=== PATIENT | female | born 1980 | race Caucasian/White ===

== ENCOUNTER 2023-05-12 05:33 | Outpatient (CLI) | payer OTHER ==
[~2023-05-12] VITALS: Ht 163 cm; Wt 63.0 kg
[2023-05-13] MEDS ORDERED: TUME1CAP PO (13:05)
== END 2023-05-13 14:03 | disposition home or self-care (01) ==
LOC: PREOP 05:33
PROVIDERS: ATTEND Podiatrist Foot & Ankle Surgery
DX: Z01.818 Encounter for other preprocedural examination (principal)

== ENCOUNTER 2023-05-21 06:06 | Day surgery (SDC) | payer OTHER ==
[~2023-05-21] VITALS: Ht 163 cm; Wt 63.0 kg
[2023-05-21] VITALS (10 sets, daily range): BP systolic 91–110; BP diastolic 64–72
[~2023-05-21 06:06] MED LIST: TUME1CAP PO
[2023-05-21] MEDS ORDERED: ceFAZolin INJECTION 1,000 MG in NS (IVPB) 50 ML 50 ML IV ONE (06:45)
[2023-05-21] MEDS ORDERED: LACTATED RINGERS 1,000 ML 1,000 ML IV PRN (06:45)
[2023-05-21] MEDS ORDERED: ceFAZolin INJECTION 1,000 MG ONE (06:46)
[2023-05-21] MEDS ORDERED: NS (IVPB) 50 ML 50 ML ONE (06:46)
[2023-05-21] MEDS ORDERED: dexAMETHasone INJ 10 MG/ML 1 ML VIAL ONE ×2 (07:07→07:47)
[2023-05-21] MEDS ORDERED: BUPIVACAINE 0.5% 10 ML VIAL ONE ×2 (07:13→08:42)
--- NOTE | 2023-05-21 07:45 | Progress Note-Pre Operative ---
Pre-Operative Progress Note Date of Available H&P: May 21, 2023 Date H&P Reviewed: May 21, 2023 Time H&P Reviewed: 07:45 Pre-Operative Diagnosis: Fracture of the right 5th metatarsal CHERI AYALA DPM May 21, 2023 07:45
[2023-05-21] MEDS ORDERED: proPOfol INJECTION 200 MG/20 ML VIAL IV ONE (07:47)
[2023-05-21] MEDS ORDERED: ONDANSETRON INJECTION 4 MG/2 ML (SDV) ONE (07:47)
[2023-05-21] MEDS ORDERED: LIDOCAINE PF 2% 5 ML VIAL ONE (07:47)
[2023-05-21] MEDS ORDERED: fentaNYL INJECTION 100 MCG/2 ML VIAL ONE (07:47)
[2023-05-21] MEDS ORDERED: MIDAZOLAM INJ 2 MG/2 ML VIAL ONE (07:48)
[2023-05-21] MEDS: LIDOCAINE 1% INJ 20 ML VIAL ONE (07:58)
[2023-05-21] MEDS: BUPIVACAINE 0.5% 10 ML VIAL ONE (07:58)
[2023-05-21] MEDS ORDERED: PHENYLEPHRINE 100 MCG/ML 10 ML (ANESTHESIA) SYR ONE (08:34)
[2023-05-21] MEDS ORDERED: SEVOFLURANE (ULTANE) 15 ML INHAL SOLN ONE (08:49)
--- NOTE | 2023-05-21 09:10 | Progress Note-Post Operative ---
Post-Operative Progess Note Surgeon (s)/Occupational Therapist'S Assistant (s) Surgeon CHERI AYALA DPM Occupational Therapist'S Assistant: none Pre-Operative Diagnosis Fracture of the right 5th metatarsal Post-Operative Diagnosis Same Procedure & Operative Findings Date of Procedure 05/21/23 Procedure Performed/Findings Open Reduction / Internal Fixation right 5th metatarsal Anesthesia Type General Estimated Blood Loss Estimated blood loss (mL): Minimal Specimens/Packing Specimens Removed none CHERI AYALA DPM May 21, 2023 09:09
[2023-05-21] MEDS ORDERED: ACHD5005 PO (09:15)
[2023-05-21] MEDS ORDERED: ONDANSETRON INJECTION 4 MG/2 ML (SDV) IVP PRN (09:15)
[2023-05-21] MEDS ORDERED: HYDROmorphone INJECTION 2 MG/ML VIAL IV ONE (09:15)
[2023-05-21] MEDS ORDERED: LACTATED RINGERS 1,000 ML 1,000 ML IV SCH (09:15)
[2023-05-21] MEDS ORDERED: CEPH500C PO (09:15)
[2023-05-21] MEDS ORDERED: HYDROcodone/ACETAMINOPHEN 5 MG/325 MG TABLET PO PRN ×2 (09:15→09:30)
[2023-05-21] MEDS ORDERED: morphine INJ 10 MG/ML 1ML (SYR OR VIAL) IVP ONE (09:15)
--- NOTE | 2023-05-21 09:16 | Anesthesia-General Post-Op ---
General Patient Condition Mental Status/LOC: Same as Preop Cardiovascular: Satisfactory Nausea/Vomiting: Absent Respiratory: Satisfactory Pain: Controlled Complications: Absent Post Op Complications Complications None Follow Up Care/Instructions Patient Instructions None needed. Anesthesia/Patient Condition Patient Condition Patient is doing well, ready for discharge to home with no complaints, stable vital signs, no apparent adverse anesthesia problems. No complications reported per nursing. LEXY BHANDARI DO May 21, 2023 09:16
--- NOTE | 2023-05-21 10:21 | Diagnostic Imaging Report ---
INDICATION: Right foot pain Two views of the right foot show postoperative changes from internal fixation of the comminuted oblique fracture of the distal shaft of the right 5th metatarsal. IMPRESSION: Good alignment of the right 5th metatarsal following internal fixation. Dictated by: Dictated on workstation # [id number]
--- NOTE | 2023-05-21 15:52 | OPERATIVE REPORT ---
DATE OF SERVICE: 05/21/2023 SURGEON: Graciela Ayala DPM PREOPERATIVE DIAGNOSIS: Fracture of the right fifth metatarsal. POSTOPERATIVE DIAGNOSIS: Fracture of the right fifth metatarsal. PROCEDURE: Open reduction and internal fixation of the right fifth metatarsal. WOUND CLASS: Clean. ANESTHESIA: General. HEMOSTASIS: Pneumatic thigh tourniquet at 250 mmHg. INDICATIONS: This 42-year-old female presents complaining of a fracture of the right heel, right foot. This fracture has not healed over an extended period of time and it has subluxed shifted proximally. After conservative treatment has failed, surgical options were explored and she is agreeable to surgical intervention after risks and complications were discussed at length. No guarantees were extended to the patient and she is willing to proceed. DESCRIPTION OF PROCEDURE: The patient was brought back to the operating table and placed in secure supine position. General anesthetic was then induced. Appropriate timeout was performed. A pneumatic thigh tourniquet was placed on the right lower extremity over several layers of padding. The right foot was then anesthetized with local anesthetic preoperatively with 10 mL of 1:1 mixture of 1% Xylocaine and 0.5% Marcaine in a reverse Keen block. The right foot was then prepped and draped in normal sterile manner. The right foot was then elevated allowed to exsanguinate after which the tourniquet was inflated to 250 mmHg. Attention was then directed to the dorsal aspect of the right fifth metatarsal where a 4 cm longitudinal linear incision was created. The incision was deepened in the same plane with great care to identify and retract all vital neurovascular structures. The incision was deepened down to the periosteum where subperiosteal dissection was carried out. The fracture was identified to the fifth metatarsal and there was quite a bit of fibrotic tissue interposed into the fracture site. The two fracture fragments were slightly after which, some debris or fibrotic tissue was removed between the 2 portions of bone. There was an oblique fracture extending proximally and medially to the distal fragment. A K-wire was utilized to fenestrate the proximal distal portion of the fracture fragment. Excellent bony apposition was appreciated at this time. A 0.062 K-wire was utilized to distract the capital fragment after which a bone clamp was applied. This was excellent alignment was appreciated with intraoperative C-arm. Next, utilizing standard technique, a two 2.0 headed cannulated screws were utilized for fixation from Tamara Wright. First two guidewires were placed from lateral to medial across the fracture fragment after which a 10 mm for the proximal and a 12 mm, the distal 4.0 cannulated screws, partially threaded were placed from lateral to medial. Excellent bony apposition and fixation was appreciated this time. The wound was flushed with copious amount of normal saline. Bone putty was applied to the distal portion of the fracture at the distal diaphysis where there is a gap where some of the fibrotic tissue was debrided this was approximately 1.5 mg/0.5 mL of padding applied. Wound closure was then performed in layers. Deep closure and periosteum was performed with 3-0 Vicryl, superficial closure to the subcutaneous tissue was performed with subQ 4-0 Vicryl, skin closure with 4-0 Prolene in a horizontal mattress type stitch. Postoperative injection consisted of 10 mL of 0.5% Marcaine injected in a local infusion to the surgical site. Postoperative dressing consisted of Betadine-soaked Adaptic, sterile 4 x 4's, sterile Kerlix, all secured with Coban wrap. The patient tolerated the anesthesia and procedure well and was transported from the operating room to the recovery room with vital signs stable and vascular status intact to all digits of the right foot. The patient is to follow up in my office in 10 days' time or sooner if necessary. She was given a prescription for Keflex as well as hydrocodone. Job ID: [id number] DocumentID: [id number] Dictated Date: 05/21/2023 09:31:13 [employer]ing [employer] Date: 05/21/2023 15:49:00 Dictated By: GRACIELA AYALA DPM
== END 2023-05-21 12:00 | disposition home or self-care (01) ==
LOC: SDC 06:06
PROVIDERS: ATTEND Podiatrist Foot & Ankle Surgery
DX: S92.351G Displaced fracture of fifth metatarsal bone, right foot, subsequent encounter for fracture with delayed healing (principal)
CPT/HCPCS: 73620; 84703; 87081